=== PATIENT | female | born 1945 | race Caucasian/White ===

== ENCOUNTER 2019-01-19 22:24 | Emergency (ER) | payer OTHER ==
[~2019-01-19] VITALS: Ht 152.4 cm; Wt 68.0 kg
[~2019-01-19 22:24] MED LIST: AMITRIPTYLINE H25 M2 PO; ASPIR 8181 M1 PO; COREG25 MG PO; COZAAR 50 MG TA50 M2 PO; FLAGYL500 MG PO; HYDROCODONE-AP1 EAC6 PO; LASIX 40 MG TAB40 M2 PO; LEVAQUIN 500 M500 M1 PO; LEXAPRO 10 MG T10 M2 PO; MAGNESIUM OXID400 MG PO; PHENERGAN 25 MG25 M1 PO; SIMVASTATIN40 MG PO; [UNRECOGNIZED DRUG - OTHER] PO
[2019-01-20 05:00] VITALS: BP 00/00
== END 2019-01-20 05:00 ==
LOC: M.ERS 22:24
DX: I46.9 Cardiac arrest, cause unspecified (principal); I25.10 Atherosclerotic heart disease of native coronary artery without angina pectoris; I50.22 Chronic systolic (congestive) heart failure; N18.3 Chronic kidney disease, stage 3 (moderate); J96.11 Chronic respiratory failure with hypoxia; Z90.710 Acquired absence of both cervix and uterus